=== PATIENT | male | born 1980 | race Caucasian/White ===

== ENCOUNTER 2019-01-13 16:43 | Emergency (ER) | payer OTHER ==
[2019-01-13] MEDS: DEXAMETHASONE 10 MG/ML 1 ML INJ IM (17:45)
[2019-01-13] MEDS: ALBUTEROL 0.083% (NEB) 2.5 MG/3 ML AMP NEB (17:51)
[2019-01-13] MEDS: IPRATROPIUM (NEB) 0.5 MG/2.5 ML AMP NEB (17:51)
== END 2019-01-13 18:28 | disposition home or self-care (01) ==
LOC: FTE 16:43
DX: J40 Bronchitis, not specified as acute or chronic (principal); F17.210 Nicotine dependence, cigarettes, uncomplicated
CPT/HCPCS: 71045; 94664; 96372; 99284-25

== ENCOUNTER 2019-03-31 10:29 | Emergency (ER) | payer OTHER | END 2019-03-31 12:34 | disposition home or self-care (01) | LOC: FTE 12:34 | DX: M25.512 Pain in left shoulder (principal); J45.909 Unspecified asthma, uncomplicated; F17.210 Nicotine dependence, cigarettes, uncomplicated | CPT/HCPCS: 73030; 99283-25 ==